=== PATIENT | male | born 1995 | race Caucasian/White ===

== ENCOUNTER 2018-12-27 09:35 | Emergency (ER) | payer BC ==
--- NOTE | 2018-12-27 11:08 | ED ---
General Adult HPI - General Chief complaint: Upper Respiratory Infection Stated complaint: Cough, Fever, weakness Time Seen by Provider: 12/27/18 10:34 Source: patient, RN notes reviewed Mode of arrival: ambulatory Limitations: no limitations - History of Present Illness Initial comments: Patient 23-year-old male presented to the emergency room today with a chief complaint of increased cough congestion over the last 2 days. Patient does admit that symptoms started with cough and rhinorrhea. Does admit to sputum production it's been green in color. Patient does admit to begin he had fever last night. States had chills as well. Patient states appetites been well. Does admit that he had one episode of nausea vomiting. Denies any abdominal pain. Denies any other complaints. Patient denies any recent fever, chills, shortness of breath, chest pain, back pain, numbness or tingling, headaches or visual changes, or any other complaints. - Related Data Home Medications Medication Instructions Recorded Confirmed Acetaminophen/Diphenhydramine 1 tab PO HS 12/27/18 12/27/18 [Tylenol PM 500-25mg] Ascorbic Acid [Vitamin C] 500 mg PO Q4H 12/27/18 12/27/18 Previous Rx's Medication Instructions Recorded Oseltamivir [Tamiflu] 75 mg PO Q12HR 5 Days cap 12/27/18 Allergies Allergy/AdvReac Type Severity Reaction Status Date / Time No Known Allergies Allergy Verified 12/27/18 11:14 Review of Systems ROS Statement: Those systems with pertinent positive or pertinent negative responses have been documented in the HPI. ROS Other: All systems not noted in ROS Statement are negative. Past Medical History Past Medical History: No Reported History History of Any Multi-Drug Resistant Organisms: None Reported Past Surgical History: No Surgical Hx Reported Past Psychological History: No Psychological Hx Reported Smoking Status: Current some day smoker Past Alcohol Use History: Occasional Past Drug Use History: Marijuana General Exam - General Exam Comments Initial Comments: General: The patient is awake and alert, in no distress, and does not appear acutely ill. Eye: There is normal conjunctiva bilaterally. No signs of icterus. Ears, nose, mouth and throat: There are moist mucous membranes and no oral lesions. Neck: The neck is supple, there is no tenderness or JVD. Cardiovascular: There is a regular rate and rhythm. No murmur, rub or gallop is appreciated. Respiratory: Coarse Lungs sounds bilateral. respirations are non-labored, breath sounds are equal. No stridor, rales. Musculoskeletal: Normal ROM, no tenderness. Neurological: A&O x 3. CN II-XII intact, There are no obvious motor or sensory deficits. Coordination appears grossly intact. Speech is normal. Skin: Skin is warm and dry and no rashes or lesions are noted. Psychiatric: Cooperative, appropriate mood & affect, normal judgment. Limitations: no limitations Course Vital Signs 12/27/18 12/27/18 09:50 11:08 Temperature 99.1 F 99.1 F Pulse Rate 102 H 91 Respiratory 20 18 Rate Blood Pressure 146/90 127/86 O2 Sat by Pulse 97 97 Oximetry Medical Decision Making - Medical Decision Making Chest x-ray reviewed negative for any acute abnormality. Patient's influenza A positive. Patient's symptoms started 2 days ago be given prescription for Tamiflu. Patient advised close follow-up with family physician return for any other concerns. - Lab Data Lab Results 12/27/18 Range/Units 11:15 Influenza Type A RNA Detected H (Not Detectd) Influenza Type B (PCR) Not Detected (Not Detectd) Disposition Clinical Impression: Influenza A Disposition: HOME SELF-CARE Condition: Good Instructions (If sedation given, give patient instructions): Influenza (ED) Additional Instructions: Please use medication as discussed. Please follow-up with family doctor in the next 2 days of symptoms have not improved. Please return to emergency room if the symptoms increase or worsen or for any other concerns. Prescriptions: Oseltamivir [Tamiflu] 75 mg PO Q12HR 5 Days cap Is patient prescribed a controlled substance at d/c from ED?: No Referrals: None,Stated [Primary Care Provider] - 1-2 days Time of Disposition: 12:03
[2018-12-27 11:11] VITALS: RESP 18
--- NOTE | 2018-12-27 12:01 | XR ---
EXAMINATION TYPE: XR chest 2V DATE OF EXAM: 12/27/2018 COMPARISON: 08/06/2018 HISTORY: 23-year-old male with fever and cough TECHNIQUE: PA and lateral views FINDINGS: The cardiomediastinal silhouette, aorta, and pulmonary vasculature are within normal limits. Lungs an d pleural spaces are clear. IMPRESSION: No acute cardiopulmonary process.
[2018-12-27] MEDS ORDERED: IBUPROFEN 600 MG TAB PO STA (12:08)
[2018-12-27 12:19] VITALS: BP 115/81; PULSE 107; TEMP 102.4
== END 2018-12-27 12:18 | disposition home or self-care (01) ==
LOC: EC 09:35
DX: J10.1 Influenza due to other identified influenza virus with other respiratory manifestations (principal); R11.2 Nausea with vomiting, unspecified; Z79.899 Other long term (current) drug therapy
CPT/HCPCS: 71046; 87502; 99283

== ENCOUNTER 2019-06-14 08:39 | Emergency (ER) | payer BC ==
[2019-06-14] MEDS ORDERED: NITROGLYCERIN OINT 1 INCH/GM PACKET TOPICAL STA (09:01)
[2019-06-14] MEDS ORDERED: ASPIRIN 81 MG PO STA (09:01)
[2019-06-14 09:39] LABS: INR 0.9 (<1.2); Partial Thromboplastin Time 23.9 sec (22.0-30.0); Prothrombin Time 10.2 sec (9.0-12.0)
[2019-06-14 09:44] LABS: Basophils # (A) 0.1 k/uL (0-0.2); Basophils % (A) 1 %; Eosinophils # (A) 0.3 k/uL (0-0.7); Eosinophils % (A) 4 %; HGB 14.3 gm/dL (13.0-17.5); Lymphocytes # (A) 1.5 k/uL (1.0-4.8); Lymphocytes % (A) 26 %; MCH 28.8 pg (25.0-35.0); MCHC 34.1 g/dL (31.0-37.0); MCV 84.6 fL (80.0-100.0); Mean Platelet Volume 6.9; Monocytes # (A) 0.3 k/uL (0-1.0); Monocytes % (A) 6 %; Neutrophils # (A) 3.7 k/uL (1.3-7.7); Neutrophils % (A) 62 %; Platelet Count 282 k/uL (150-450); RBC 4.96 m/uL (4.30-5.90); RDW 14.5 % (11.5-15.5)
[2019-06-14 09:45] LABS: ALT 36 U/L (21-72); AST 26 U/L (17-59); African American GFR (CKD) >90 (>60 ml/min/1.73 sqM); Albumin 3.9 g/dL (3.5-5.0); Alkaline Phosphatase 64 U/L (38-126); Anion Gap 8 mmol/L; Blood Urea Nitrogen 11 mg/dL (9-20); Calcium 9.2 mg/dL (8.4-10.2); Carbon Dioxide 25 mmol/L (22-30); Chloride 108 mmol/L (98-107); Glucose 114 mg/dL (74-99); Magnesium 2.1 mg/dL (1.6-2.3); Potassium 3.9 mmol/L (3.5-5.1); Sodium 141 mmol/L (137-145); Total Bilirubin 0.4 mg/dL (0.2-1.3); Total Protein 6.4 g/dL (6.3-8.2)
--- NOTE | 2019-06-14 09:45 | XR ---
EXAMINATION TYPE: XR chest 2V DATE OF EXAM: 06/14/2019 COMPARISON: CXR from 12/27/2018. HISTORY: Lower sternal pressure and pain. TECHNIQUE: Frontal and lateral views of the chest are obtained. FINDINGS: Right EKG leads are present. There is possible early airspace opacity right lateral lung ba se versus trapped fluid in fissure on lateral view. Small to tiny right pleural effusion is suspected with blunting of posterior costophrenic angle. Left lung is clear. No pneumothorax is seen bilateral ly. The cardiac silhouette size remains within normal limits. The osseous structures are intact. IMPRESSION: Suspect small right pleural fluid collection, early infiltrate felt less likely.
--- NOTE | 2019-06-14 10:50 | ED ---
General Adult HPI - General Chief complaint: Chest Pain Stated complaint: Pressure in chest Time Seen by Provider: 06/14/19 09:01 Source: patient Mode of arrival: ambulatory Limitations: no limitations - History of Present Illness Initial comments: 24yo male with no PMH presents stating for burning pressure in the lower aspect of chest/upper abdomen. Patient states that this morning woke appears nauseated he states he had burning/pressure in the upper abdomen. He states that he went to work, the symptoms persisted. Denies vomiting. Denies stabbing chest pain or SOB. Patient states it doesnt change with exertion. Patient denies premature CAD. Denies pain with deep inspiration, hemoptysis, recent trave/immobilization/surgeries, patient denies arm pain, neck pain, back pain. Denies Experiencing this before. Patient states he did drink over the weekend. Denies vomiting or diarrhea. Remaining ROS (-) - Related Data Home Medications Medication Instructions Recorded Confirmed No Known Home Medications 06/14/19 06/14/19 Allergies Allergy/AdvReac Type Severity Reaction Status Date / Time No Known Allergies Allergy Verified 06/14/19 09:11 Review of Systems ROS Statement: Those systems with pertinent positive or pertinent negative responses have been documented in the HPI. ROS Other: All systems not noted in ROS Statement are negative. Past Medical History Past Medical History: No Reported History History of Any Multi-Drug Resistant Organisms: None Reported Past Surgical History: No Surgical Hx Reported Past Psychological History: No Psychological Hx Reported Smoking Status: Current some day smoker Past Alcohol Use History: Occasional Past Drug Use History: Marijuana General Exam - General Exam Comments Initial Comments: General: The patient is awake and alert, in no distress, and does not appear acutely ill. Eye: +3 mm pupils are equal, round and reactive to light, extra-ocular movements are intact. No nystagmus. There is normal conjunctiva bilaterally. No signs of icterus. Ears, nose, mouth and throat: There are moist mucous membranes and no oral lesions. Neck: The neck is supple, there is no tenderness or JVD. Cardiovascular: There is a regular rate and rhythm. No murmur, rub or gallop is appreciated. Respiratory: Lungs are clear to auscultation, respirations are non-labored, breath sounds are equal. No wheezes, stridor, rales, or rhonchi. Gastrointestinal: Soft, non-distended,patient tender to palpation over the epigastric region of abdomen, the abdomen is without masses or organomegaly noted. There is no rebound or guarding present. Musculoskeletal: Normal ROM, no tenderness. Strength 5/5. Sensation intact. Pulses equal bilaterally 2+. Neurological: A&O x 3. CN II-XII intact, There are no obvious motor or sensory deficits. Coordination appears grossly intact. Speech is normal. Skin: Skin is warm and dry and no rashes or lesions are noted. No LE Edema. Psychiatric: Cooperative, appropriate mood & affect, normal judgment. Limitations: no limitations Course Vital Signs 06/14/19 06/14/19 06/14/19 08:43 08:54 09:00 Temperature 97.6 F Pulse Rate 66 49 L Respiratory 20 18 Rate Blood Pressure 156/93 115/76 O2 Sat by Pulse 98 96 97 Oximetry 06/14/19 06/14/19 06/14/19 09:30 10:00 11:41 Temperature 97.8 F Pulse Rate 49 L 50 L 59 L Respiratory 17 17 18 Rate Blood Pressure 111/71 109/64 103/59 O2 Sat by Pulse 97 96 97 Oximetry EKG Findings - EKG Comments: EKG Findings:: Ventricular rate 56 bpm, HI interval 136 ms, to administration 10 2 ms, QT/QTC 4:30/414 ms. This is sinus bradycardia with sinus arrhythmia. There is no ST elevation or depression. EKG intrepetted by myself and Dr. Chand. Medical Decision Making - Medical Decision Making 24yo male presenting for epigastric discomfort. Patient is reproducible pain on examination. States he's streaking over the weekend. Lipase within normal limits. Patient appears well. Troponin negative. No findings on EKG consistent with acute coronary syndrome. Patient denies any exertional chest pain. Denies experiencing this before. Patient chest x-ray reveals a pleural effusion, small. I viewed this imaging study with my attending provider. Patient has no infectious symptoms no coughand production or fevers. No murmur on examination no lower extremity swelling. Patient denies shortness of breath. Patient PERC (-). Patient denies current symptoms. I discussed case with my attending provider Dr Chand who reviewed EKG, at this time we feel patient is stable for discharge with outpatient PCP f/u for pleural effusion and strict return parameters for worsening symptoms. I did recommend 2nd troponin, patient did not want to wait 3 hours, and stated that he wanted to go home. Patient discharged appearing well. - Lab Data Result diagrams: 06/14/19 09:16 06/14/19 09:16 Lab Results 06/14/19 06/14/19 06/14/19 Range/Units 09:16 09:16 09:16 WBC 6.0 (3.8-10.6) k/uL RBC 4.96 (4.30-5.90) m/uL Hgb 14.3 (13.0-17.5) gm/dL Hct 42.0 (39.0-53.0) % MCV 84.6 (80.0-100.0) fL MCH 28.8 (25.0-35.0) pg MCHC 34.1 (31.0-37.0) g/dL RDW 14.5 (11.5-15.5) % Plt Count 282 (150-450) k/uL Neutrophils % 62 % Lymphocytes % 26 % Monocytes % 6 % Eosinophils % 4 % Basophils % 1 % Neutrophils # 3.7 (1.3-7.7) k/uL Lymphocytes # 1.5 (1.0-4.8) k/uL Monocytes # 0.3 (0-1.0) k/uL Eosinophils # 0.3 (0-0.7) k/uL Basophils # 0.1 (0-0.2) k/uL PT 10.2 (9.0-12.0) sec INR 0.9 (<1.2) APTT 23.9 (22.0-30.0) sec Sodium 141 (137-145) mmol/L Potassium 3.9 (3.5-5.1) mmol/L Chloride 108 H (98-107) mmol/L Carbon Dioxide 25 (22-30) mmol/L Anion Gap 8 mmol/L BUN 11 (9-20) mg/dL Creatinine 0.83 (0.66-1.25) mg/dL Est GFR (CKD-EPI)AfAm >90 (>60 ml/min/1.73 sqM) Est GFR (CKD-EPI)NonAf >90 (>60 ml/min/1.73 sqM) Glucose 114 H (74-99) mg/dL Calcium 9.2 (8.4-10.2) mg/dL Magnesium 2.1 (1.6-2.3) mg/dL Total Bilirubin 0.4 (0.2-1.3) mg/dL AST 26 (17-59) U/L ALT 36 (21-72) U/L Alkaline Phosphatase 64 (38-126) U/L Troponin I (0.000-0.034) ng/mL Total Protein 6.4 (6.3-8.2) g/dL Albumin 3.9 (3.5-5.0) g/dL Lipase (23-300) U/L 06/14/19 06/14/19 Range/Units 09:16 09:16 WBC (3.8-10.6) k/uL RBC (4.30-5.90) m/uL Hgb (13.0-17.5) gm/dL Hct (39.0-53.0) % MCV (80.0-100.0) fL MCH (25.0-35.0) pg MCHC (31.0-37.0) g/dL RDW (11.5-15.5) % Plt Count (150-450) k/uL Neutrophils % % Lymphocytes % % Monocytes % % Eosinophils % % Basophils % % Neutrophils # (1.3-7.7) k/uL Lymphocytes # (1.0-4.8) k/uL Monocytes # (0-1.0) k/uL Eosinophils # (0-0.7) k/uL Basophils # (0-0.2) k/uL PT (9.0-12.0) sec INR (<1.2) APTT (22.0-30.0) sec Sodium (137-145) mmol/L Potassium (3.5-5.1) mmol/L Chloride (98-107) mmol/L Carbon Dioxide (22-30) mmol/L Anion Gap mmol/L BUN (9-20) mg/dL Creatinine (0.66-1.25) mg/dL Est GFR (CKD-EPI)AfAm (>60 ml/min/1.73 sqM) Est GFR (CKD-EPI)NonAf (>60 ml/min/1.73 sqM) Glucose (74-99) mg/dL Calcium (8.4-10.2) mg/dL Magnesium (1.6-2.3) mg/dL Total Bilirubin (0.2-1.3) mg/dL AST (17-59) U/L ALT (21-72) U/L Alkaline Phosphatase (38-126) U/L Troponin I <0.012 (0.000-0.034) ng/mL Total Protein (6.3-8.2) g/dL Albumin (3.5-5.0) g/dL Lipase 82 (23-300) U/L Disposition Clinical Impression: Epigastric pain, Pleural effusion Disposition: HOME SELF-CARE Condition: Good Instructions (If sedation given, give patient instructions): Epigastric Pain (ED) Additional Instructions: Please use medication as discussed. Please follow-up with family doctor in the next 2 days. Please return to emergency room if the symptoms increase or worsen or for any other concerns. Is patient prescribed a controlled substance at d/c from ED?: No Referrals: None,Stated [Primary Care Provider] - 1-2 days [facility] [NON-STAFF] - 1-2 days Time of Disposition: 10:49
[2019-06-14 11:42] VITALS: BP 103/59; PULSE 59; RESP 18; TEMP 97.8
== END 2019-06-14 11:42 | disposition home or self-care (01) ==
LOC: EC 08:39
DX: J90 Pleural effusion, not elsewhere classified (principal); R10.13 Epigastric pain; F17.200 Nicotine dependence, unspecified, uncomplicated
CPT/HCPCS: 36415; 71046; 80053; 83690; 83735; 84484; 85025; 85610; 85730; 93005; 99285